=== PATIENT | male | born 1965 ===

== ENCOUNTER 2019-03-30 06:21 | Day surgery (SDC) | payer BC ==
[~2019-03-30 06:21] MED LIST: Buffered Lidocaine 1% SYRIN* 1 ML/SYRINGE INTRADERM ONE; Dexamethasone IV* 4 MG/ML 1 ML (4 MG) IV SLOW PU ONE; Famotidine IV* 10 MG/ML 2 ML (20 mg) IV ONE; Lactated Ringers 1000 ML Bag* 1,000 ML IV SCH
[2019-03-30] MEDS ORDERED: Dexamethasone IV* 4 MG/ML 1 ML (4 MG) ONE (06:26)
[2019-03-30] MEDS ORDERED: Famotidine IV* 10 MG/ML 2 ML (20 mg) ONE (06:27)
[2019-03-30] MEDS ORDERED: Ondansetron INJ* 2 MG/ML VIAL ONE (07:07)
[2019-03-30] MEDS ORDERED: Lidocaine 2% PF * 5 ML VIAL ONE (07:07)
[2019-03-30] MEDS ORDERED: Propofol* 10 MG/ML 20 ML BTL ONE (07:07)
[2019-03-30] MEDS ORDERED: fentaNYL* 50 MCG/ML 2 ML VIAL (100 MCG VIAL) ONE (07:07)
[2019-03-30] MEDS ORDERED: Bupivacaine 0.5% SDV PF* 30ML VIAL ONE (07:09)
[2019-03-30] MEDS ORDERED: Naloxone* 0.4 MG/ML 1 ML VIAL IV PRN (07:56)
[2019-03-30] MEDS ORDERED: DiMENhydriNATE IV* 50 MG/ML VIAL IV PUSH PRN (07:56)
[2019-03-30] MEDS ORDERED: fentaNYL* 50 MCG/ML 2 ML VIAL (100 MCG VIAL) IV PRN (07:56)
[2019-03-30 08:52] VITALS: BP 140/88
--- NOTE | 2019-03-30 11:59 | OP ---
DATE OF OPERATION: 03/30/19 - [facility] DATE OF : 65 SURGEON: Anthony Loco MD. SKIN INSTALLER: BEATRICE Gaxiola. ANESTHESIOLOGIST: Dr. Navarro. ANESTHESIA: General. PRE-OP DIAGNOSIS: Right carpal tunnel syndrome. POST-OP DIAGNOSIS: Right carpal tunnel syndrome. OPERATIVE PROCEDURE: Right endoscopic carpal tunnel release. INDICATIONS: Ronni has carpal tunnel. He has done well with the endoscopic release on the left, he wants to do the right. We talked about risks and benefits. ESTIMATED BLOOD LOSS: 1 mL. COMPLICATIONS: None. FINDINGS: See above and below. DESCRIPTION OF PROCEDURE: Ronni was seen in the preoperative holding area. The correct side, site, and procedure were identified. We came back to the operating room. The arm was prepped and draped in usual fashion and time-out was performed. The arm was exsanguinated with the Esmarch and tourniquet inflated to 250 mmHg. I made a 1 cm transverse incision just ulnar to the palmaris longus tendon. Dissection was carried down and the distal antebrachial fascia was split transversely bluntly with the tenotomy scissors. A 2-prong skin hook was placed. The synovial stripper, followed by the dilators and then a Q-tip were all introduced into the carpal tunnel to both dilate and dry it out. I then placed the MicroAire endoscopic carpal tunnel device. Once it was in the appropriate position, I began the release. The release was carried out from distal to the proximal. After I had done the release, I placed a Kennedy retractor and confirmed the release. I then released the distal antebrachial fascia proximally with the tenotomy scissors. Wound was irrigated out. Skin was closed with 4-0 Prolene suture. 0.25% plain Marcaine was placed. Soft dressing was applied and he was taken to the recovery room in stable condition. [id number]/[facility] #: [id number] [facility] HOSPITALFozia
== END 2019-03-30 09:05 | disposition home or self-care (01) ==
LOC: OREAST 06:21
PROVIDERS: ATTEND Orthopaedic Surgery Hand Surgery
DX: G56.01 Carpal tunnel syndrome, right upper limb (principal); Z68.30 Body mass index [BMI] 30.0-30.9, adult; Z85.038 Personal history of other malignant neoplasm of large intestine; I10 Essential (primary) hypertension
CPT/HCPCS: J1100; J2405; J2704; J3010; J3490